=== PATIENT | female | born 1960 | race Two or more races ===

== ENCOUNTER 2019-11-02 13:41 | Emergency (ER) | payer OTHER ==
[~2019-11-02] VITALS: Ht 165.1 cm; Wt 46.7 kg
[2019-11-02] MEDS ORDERED: ZOFRAN8 MG PO (21:35)
[2019-11-02] MEDS ORDERED: KETO10TA2 PO (21:35)
== END 2019-11-02 21:52 | disposition home or self-care (01) ==
LOC: ER 13:41
DX: A08.39 Other viral enteritis (principal); D27.0 Benign neoplasm of right ovary

== ENCOUNTER 2020-02-17 12:44 | Emergency (ER) | payer OTHER ==
[~2020-02-17] VITALS: Ht 165.1 cm; Wt 46.7 kg
[~2020-02-17 12:44] MED LIST: KETO10TA2 PO; ZOFRAN8 MG PO
== END 2020-02-17 17:24 | disposition home or self-care (01) ==
LOC: ER 12:44
DX: S01.82XA Laceration with foreign body of other part of head, initial encounter (principal); R68.84 Jaw pain; W26.8XXA Contact with other sharp object(s), not elsewhere classified, initial encounter; Y93.02 Activity, running; Y92.89 Other specified places as the place of occurrence of the external cause; Y99.8 Other external cause status

== ENCOUNTER 2020-02-27 19:22 | Emergency (ER) | payer OTHER ==
[~2020-02-27] VITALS: Ht 165.1 cm; Wt 47.6 kg
[2020-02-27] MEDS ORDERED: CLINDAMYCIN 300 MG (19:41)
== END 2020-02-27 20:51 | disposition home or self-care (01) ==
LOC: ER 19:22
DX: T81.89XA Other complications of procedures, not elsewhere classified, initial encounter (principal)